=== PATIENT | female | born 1970 | race Caucasian/White ===

== ENCOUNTER → 2021-02-17 | Outpatient (CLI) | payer OTHER ==
[~2021-02-17] MED LIST: CLINDAMYCIN HC300 MG PO; IBU400 MG PO; K-DUR TAB 20 M20 MEQ PO; PREDNISONE20 MG PO
== END ==
LOC: EXRD 13:58
DX: M79.641 Pain in right hand (principal); M79.642 Pain in left hand
CPT/HCPCS: 73130

== ENCOUNTER 2021-06-15 09:36 | Emergency (ER) | payer OTHER ==
[~2021-06-15] VITALS: Ht 162.6 cm; Wt 49.4 kg
[2021-06-15 10:33] LABS: HEMOGLOBIN 15.2 gm/dl (12.3-15.3); RED BLOOD COUNT 4.9 M/UL (4.00-5.10); WHITE BLOOD COUNT 3.7 K/UL (4.5-11.0)
[2021-06-15 11:06] LABS: BUN/CREATININE RATIO 8 (0-10)
[2021-06-15] MEDS ORDERED: DECADRON6 MG PO (15:16)
== END 2021-06-15 15:30 | disposition home or self-care (01) ==
LOC: ER1 09:36
PROVIDERS: Family Medicine
DX: U07.1 COVID-19 (principal); Z90.710 Acquired absence of both cervix and uterus; Z23 Encounter for immunization; J44.9 Chronic obstructive pulmonary disease, unspecified; Z79.899 Other long term (current) drug therapy; F17.200 Nicotine dependence, unspecified, uncomplicated; R06.00 Dyspnea, unspecified
CPT/HCPCS: 71045; 80053; 82550; 82553; 83874; 83880; 84484; 85025; 85379; 93005; 99284; J1100; M0245; U0002

== ENCOUNTER → 2022-03-13 | Outpatient (CLI) | payer OTHER ==
[~2022-03-13] MED LIST changes: +DECADRON6 MG PO
== END ==
LOC: US 09:24
DX: M79.604 Pain in right leg (principal)
CPT/HCPCS: 93971